=== PATIENT | female | born 1960 | race Caucasian/White ===

== ENCOUNTER 2016-06-03 10:10 | Inpatient (IN) | payer OTHER ==
[2016-06-03] MEDS ORDERED: FAMOTIDINE 20 MG/50 ML IVPB 50 ML IVPB ONE ×2 (12:32→12:38)
[2016-06-03] MEDS ORDERED: SODIUM CHLORIDE 1,000 ML IV STA (12:32)
[2016-06-03] MEDS ORDERED: ONDANSETRON 4 MG/2 ML VIAL IVPUSH ONE (12:32)
--- NOTE | 2016-06-03 12:36 | PDOC ---
History of Present Illness - General Chief Complaint: Pain Stated Complaint: ABD PAIN Time Seen by Provider: 06/03/16 12:28 History Source: Patient Exam Limitations: No Limitations - History of Present Illness Travel History: No Initial Comments: 06/03/16 12:33 56 yr female with abd pain nausea and vomiting started at 3am today. no other family members are sick. Pt denies fever, chills no diarrhea. no abd surgery. no travel. Timing/Duration: reports: constant Quality: reports: aching Abdominal Pain Onset Location: reports: generalized abdomen Pain Radiation: reports: epigastric Activities at Onset: reports: eating Past History - Past Medical History Allergies/Adverse Reactions: Allergies Allergy/AdvReac Type Severity Reaction Status Date / Time No Known Allergies Allergy Verified 06/03/16 10:15 Home Medications: Ambulatory Orders NK [No Known Home Medication] 06/03/16 Other medical history: DENIES - Surgical History Other Surgical History: 06/03/16 12:34 denies - Psycho/Social/Smoking Cessation Hx Anxiety: No Suicidal Ideation: No Smoking History: Never smoked Hx Alcohol Use: No Drug/Substance Use Hx: No Substance Use Type: None Abd/GI Specific PMHX - Complaint Specific PMHX Colitis: No Diverticulitis: No Gall Bladder Disease: No GERD: No Hepatitis: No Irritable Bowel Synd (IBS): No Pancreatitis: No GI Ulcer Disease: No Review of Systems - Review of Systems Able to Perform ROS?: Yes Is the patient limited Danish proficient: No Constitutional: No: Symptoms Reported HEENTM: No: Symptoms Reported Respiratory: No: Symptoms reported Cardiac (ROS): No: Symptoms Reported ABD/GI: Yes: Symptoms Reported, See HPI *Physical Exam - Vital Signs Last Vital Signs Temp Pulse Resp BP Pulse Ox 98.0 F 80 20 148/78 99 06/03/16 10:12 06/03/16 10:12 06/03/16 10:12 06/03/16 10:12 06/03/16 10:12 - Physical Exam General Appearance: Yes: Nourished, Appropriately Dressed HEENT: positive: EOMI, AURY, Normal ENT Inspection, TMs Normal, Pharynx Normal Neck: positive: Supple. negative: Tender Respiratory/Chest: positive: Lungs Clear, Normal Breath Sounds. negative: Chest Tender Cardiovascular: positive: Regular Rhythm, Regular Rate Gastrointestinal/Abdominal: positive: Normal Bowel Sounds, Tender, Increased Bowel Sounds. negative: Guarding, Rebound Musculoskeletal: positive: Normal Inspection Extremity: positive: Normal Capillary Refill, Normal Inspection, Normal Range of Motion Integumentary: positive: Normal Color, Dry, Warm Neurologic: positive: Fully Oriented, Alert, Normal Mood/Affect, Normal Response , Motor Strength 07/03 ED Treatment Course - LABORATORY CBC & Chemistry Diagram: 06/03/16 12:30 06/03/16 12:30 Medical Decision Making - Medical Decision Making 06/03/16 12:35 cc: abd pain, diarrhea vomiting started at 3am pain generalised radiates to epigastric area no back pain or diarrhea. 06/03/16 15:11 pt feels better after medications prescribed. US pending . 06/03/16 17:35 ct done pt improved after the medications no vomiting 06/03/16 17:[address] results show distal SBO no answer spoke to [facility] Hospitalist [employer]TAIN to admit pt. accepted admission to [facility] 06/03/16 18:06 spoke to Radha CARDOZO will see pt at bedside 06/03/16 18:14 Radha Patel at bedside family and pt aware of the plan explained via khmer translation *DC/Admit/Observation/Transfer Diagnosis at time of Disposition: Small bowel obstruction - Discharge Dispostion Admit: Yes Decision to Admit order Date/Time: 06/03/16 18:05 - Referrals Referrals: Lashae Hamm MD [Primary Care Provider] -
[2016-06-03] MEDS ORDERED: ONDANSETRON 4 MG/2 ML VIAL ONE (12:38)
[2016-06-03 12:40] LABS: BASOPHIL 0.4 % (0-2.0); EOSINOPHIL 0.4 % (0-4.5); MCH 29.3 pg (25.7-33.7); MCHC 33.7 g/dl (32.0-36.0); MEAN CELL VOLUME 87.1 fl (80-96); MEAN PLT VOLUME 8.5 fl (7.5-11.1); NEUTROPHILS 83.1 % (42.8-82.8); PLATELET COUNT 235 K/MM3 (134-434); RDW 13.2 % (11.6-15.6); WHITE BLOOD COUNT 10.1 K/mm3 (4.0-10.0)
[2016-06-03 13:07] LABS: ALBUMIN 4.9 g/dl (3.4-5.0); BILIRUBIN,TOTAL 0.6 mg/dL (0.2-1.0); TOT PROT 9.5 g/dl (6.4-8.2)
[2016-06-03 13:46] LABS: URINE APPEARANCE CLEAR; URINE BILIRUBIN NEGATIVE (NEGATIVE); URINE BLOOD NEGATIVE (NEGATIVE); URINE COLOR YELLOW; URINE GLUCOSE (UA) NEGATIVE (NEGATIVE); URINE KETONE 1+ (NEGATIVE); URINE LEUK ESTERASE NEGATIVE (NEGATIVE); URINE NITRITE NEGATIVE (NEGATIVE); URINE UROBILINOGEN NEGATIVE E.U./dl (0.2-1.0)
[2016-06-03 13:48] LABS: URINE PROTEIN 2+ (NEGATIVE)
[2016-06-03 13:59] LABS: URINE HYALINE CAST 1 /lpf; URINE RBC 8 /hpf (0-3); URINE WBC 11 /hpf (3-5)
[2016-06-03] MEDS ORDERED: METOCLOPRAMIDE HCL INJECTION 10 MG/2 ML VIAL IVPB ONE (15:48)
[2016-06-03] MEDS ORDERED: METOCLOPRAMIDE HCL INJECTION 10 MG/2 ML VIAL ONE (16:14)
[2016-06-03] MEDS: SODIUM CHLORIDE 1,000 ML IV SCH ×2 (16:15→22:06)
--- NOTE | 2016-06-03 19:29 | PN ---
<Victorina Colbert - Last Filed: 06/03/16 22:47> Teaching Attending Note Name of Resident: Jsaon Hernandez Problem List - Problems (1) Small bowel obstruction Assessment/Plan: NGT NPO IVF NS @125cc/h Tylenol 500mg IVPB Q6h prn Protonix 40mg IVPB Zofran prn Surgery consult Code(s): K56.69 - OTHER INTESTINAL OBSTRUCTION (2) Nephrolithiasis Assessment/Plan: IVF Urology consult Code(s): N20.0 - CALCULUS OF KIDNEY (3) DVT prophylaxis Assessment/Plan: Heparin 5000U sq TID Code(s): CDC1507 - <TrinityTiffany - Last Filed: 06/04/16 00:26> Teaching Attending Note ATTENDING PHYSICIAN STATEMENT I saw and evaluated the patient. I reviewed the resident's note and discussed the case with the resident. I agree with the resident's findings and plan as documented. SUBJECTIVE: 56 yo F presents with abdominal pain, nausea and vomiting since 3am today. Patient states pain originated in her LLQ and radiates to her whole abdomen. Patient rates the pain as 12/10. She notes that she has had 3 BM since last night. Denies sick contacts. Patient denies alleviating or worsening factors. PMHx: Denies OBJECTIVE: Last Vital Signs Temp Pulse Resp BP Pulse Ox 97.7 F 100 H 20 131/85 98 06/03/16 22:28 06/03/16 22:28 06/03/16 22:28 06/03/16 22:28 06/03/16 22:39 GENERAL: Awake, alert, and fully oriented, in no acute distress HEENT: NG tube. PERRLA, EOMI. Moist mucosa. No JVD LUNGS: No distress, speaks full sentences, clear to auscultation bilaterally HEART: Regular rate and rhythm, normal S1 and S2, no murmurs, rubs or gallops, peripheral pulses normal and equal bilaterally. ABDOMEN: Soft, LLQ tender on palpation, hypoactive bowel sounds. No guarding, no rebound. No masses. Negative for CVA tenderness. EXTREMITIES: Normal inspection, Normal range of motion, no edema. No clubbing or cyanosis. NEUROLOGICAL: Cranial nerves II through XII grossly intact. Normal speech, normal gait, no focal sensorimotor deficits SKIN: Warm, Dry, normal turgor, no rashes or lesions noted. CBCD WBC 10.1 K/mm3 (4.0-10.0) H 06/03/16 12:30 RBC 5.28 M/mm3 (3.60-5.2) H 06/03/16 12:30 Hgb 15.5 GM/dL (10.7-15.3) H 06/03/16 12:30 Hct 46.0 % (32.4-45.2) H 06/03/16 12:30 MCV 87.1 fl (80-96) 06/03/16 12:30 MCHC 33.7 g/dl (32.0-36.0) 06/03/16 12:30 RDW 13.2 % (11.6-15.6) 06/03/16 12:30 Plt Count 235 K/MM3 (134-434) 06/03/16 12:30 MPV 8.5 fl (7.5-11.1) 06/03/16 12:30 CMP Sodium 138 mmol/L (136-145) 06/03/16 12:30 Potassium 4.2 mmol/L (3.5-5.1) 06/03/16 12:30 Chloride 102 mmol/L (98-107) 06/03/16 12:30 Carbon Dioxide 24 mmol/L (21-32) 06/03/16 12:30 Anion Gap 12 (8-16) 06/03/16 12:30 BUN 17 mg/dL (7-18) 06/03/16 12:30 Creatinine 1.0 mg/dL (0.55-1.02) 06/03/16 12:30 Creat Clearance w eGFR 57.78 (>60) 06/03/16 12:30 Calcium 10.0 mg/dL (8.5-10.1) 06/03/16 12:30 Total Bilirubin 0.6 mg/dL (0.2-1.0) 06/03/16 12:30 AST 35 U/L (15-37) 06/03/16 12:30 ALT 59 U/L (12-78) 06/03/16 12:30 Alkaline Phosphatase 90 U/L (45-117) 06/03/16 12:30 Total Protein 9.5 g/dl (6.4-8.2) H 06/03/16 12:30 Albumin 4.9 g/dl (3.4-5.0) 06/03/16 12:[address] Impression: A mid to distal small bowel obstruction is noted as discussed. Bilateral nephrolithiasis including a left-sided staghorn calculus with resultant mild calyceal dilatation. Prominent diffuse hepatic steatosis. Documentation prepared by Tiffany Petersen, acting as medical staff physician for Victorina Colbert M.D.
--- NOTE | 2016-06-03 20:10 | PN ---
Progress Note (short form) - Note Progress Note: Surgery NOTE: Asked to see the patient for an SBO seen on CT scan today without contrast. She has a history of c section and noted to have left midline tenderness since 3 am. While at her house she had nausea which was relieved by emesis. Today she has had two bowel movement, non-bloody. She has no further abd pain but while in the ER she vomited alot which was witnessed by the ER staff. No dysuria, hematuria. The Er was unable to insert an NGT, so I assisted them. Vital Signs Period Temp Pulse Resp BP Sys/Linda Pulse Ox Last 24 Hr 98.0 F-98.8 F 80-104 19-20 124-148/75-92 96-99 PE: GEN: alert, appears comfortable CV: RRR Lungs: CTA b/l Abd: soft, non-distended, mild LLQ and to the left mid abd at umbilical level. No masses or rebound CT scan: fluid filled gastric distention, fluild filled SB loops with tone of transition(mid abd) US: hematomegaly CBC, BMP 06/03/16 12:30 06/03/16 12:30 NGT-16 fr inserted into left Nare and secured at 60cm. Air ausculated over the stomach with flushing of ngt, 300 ml out clear/fluid to light green returned. bgt placed to LWS A/p: 56 yo female with SBO on ct scan, ngt inserted S/w Dr. Moreno, full surgical consult to follow D/w Medical team, CXR to confirm placement admit to the medical service/npo and coservative managment with ngt decompression/iv hydration Gi ppx Axr ordered for the am
--- NOTE | 2016-06-03 22:12 | HP ---
CHIEF COMPLAINT: abd pain, nausea, vomiting PCP: HISTORY OF PRESENT ILLNESS: 56 y/o F w/no PMH presents to ER w/ c/o abd pain and nausea since 3 am last night. Pt is Sinhala speaking and history was obtained via translation from [id number] at bedside. She states the pain started all of a sudden in her LLQ and moved to her whole abdomen. The pain was rated as a "12/10" and she felt nauseous as well. Due to the nausea she induced herself to vomit. Vomit was nonbloody and nonbilious. She has never felt symptoms like this in the past. She has had 3 regular BMs since the onset of pain with no blood in stool. Last BM was approximately 1 hour before I had spoken to her and in the ER. She also had 1 episode of emesis in ER that was also non-bloody, non-bilious. Pt has had relief with pain meds and NGT placement in ER. She denies any CP, SOB, [place], fevers, chills, dysuria. No change in diet recently. Nephews and nieces are sick with gastric illnesses. Pt has had 1 and hysterectomy in the past. She sees her PCP (Dr. Bob?) regularly. ER course was notable for: (1) benadryl, pepcid, reglan, zofran (2) (3) Recent Travel: denies PAST MEDICAL HISTORY: No PMH PAST SURGICAL HISTORY: 24 years ago, hysterectomy 20 years ago Social History: Smoking: denies Alcohol: denies Drugs: denies Family History: Brother: DM Allergies No Known Allergies Allergy (Verified 06/03/16 10:15) HOME MEDICATIONS: Home Medications Medication Instructions Recorded NK [No Known Home Medication] 06/03/16 REVIEW OF SYSTEMS CONSTITUTIONAL: Absent: fever, chills, diaphoresis, generalized weakness, malaise, loss of appetite, weight change HEENT: Absent: rhinorrhea, nasal congestion, throat pain, throat swelling, difficulty swallowing, mouth swelling, ear pain, eye pain, visual changes CARDIOVASCULAR: Absent: chest pain, syncope, palpitations, irregular heart rate, lightheadedness , peripheral edema RESPIRATORY: Absent: cough, shortness of breath, dyspnea with exertion, orthopnea, wheezing, stridor, hemoptysis GASTROINTESTINAL: abd pain, nausea, vomiting Absent:=abdominal distension, diarrhea, constipation, melena, hematochezia GENITOURINARY: Absent: dysuria, frequency, urgency, hesitancy, hematuria, flank pain, genital pain MUSCULOSKELETAL: Absent: myalgia, arthralgia, joint swelling, back pain, neck pain SKIN: Absent: rash, itching, pallor HEMATOLOGIC/IMMUNOLOGIC: Absent: easy bleeding, easy bruising, lymphadenopathy, frequent infections ENDOCRINE: Absent: unexplained weight gain, unexplained weight loss, heat intolerance, cold intolerance NEUROLOGIC: Absent: headache, focal weakness or paresthesias, dizziness, unsteady gait, seizure, mental status changes, bladder or bowel incontinence PSYCHIATRIC: Absent: anxiety, depression, suicidal or homicidal ideation, hallucinations. PHYSICAL EXAMINATION Vital Signs - 24 hr 06/03/16 06/03/16 18:10 19:42 Temperature 98.8 F 98.1 F Pulse Rate [ 102 H 104 H Apical] Respiratory 19 19 Rate Blood Pressure 129/75 133/87 [Left Arm] O2 Sat by Pulse 96 97 Oximetry (%) GENERAL: Awake, alert, and fully oriented, in no acute distress. HEAD: Normal with no signs of trauma. EYES: extraocular movements intact, sclera anicteric, conjunctiva clear. No lid lag. EARS, NOSE, THROAT: Ears normal, nares patent, oropharynx clear without exudates. Moist mucous membranes. NECK: Normal range of motion, supple without lymphadenopathy, JVD, or masses. LUNGS: Breath sounds equal, clear to auscultation bilaterally. No wheezes, and no crackles. No accessory muscle use. HEART: Regular rate and rhythm, normal S1 and S2 without murmur, rub or gallop. ABDOMEN: Soft, LLQ tenderness, not distended, hypoactive bowel sounds, no guarding, no rebound, no masses. No hepatomegaly or splenomegaly. NGT in place. MUSCULOSKELETAL: Normal range of motion at all joints. No bony deformities or tenderness. No CVA tenderness. LOWER EXTREMITIES: 2+ pulses, warm, well-perfused. No calf tenderness. No peripheral edema. NEUROLOGICAL: Cranial nerves II-XII intact. Normal speech. Normal gait. PSYCHIATRIC: Cooperative. Good eye contact. Appropriate mood and affect. SKIN: Warm, dry, normal turgor, no rashes or lesions noted, normal capillary refill. CBCD WBC 10.1 K/mm3 (4.0-10.0) H 06/03/16 12:30 RBC 5.28 M/mm3 (3.60-5.2) H 06/03/16 12:30 Hgb 15.5 GM/dL (10.7-15.3) H 06/03/16 12:30 Hct 46.0 % (32.4-45.2) H 06/03/16 12:30 MCV 87.1 fl (80-96) 06/03/16 12:30 MCHC 33.7 g/dl (32.0-36.0) 06/03/16 12:30 RDW 13.2 % (11.6-15.6) 06/03/16 12:30 Plt Count 235 K/MM3 (134-434) 06/03/16 12:30 MPV 8.5 fl (7.5-11.1) 06/03/16 12:30 CMP Sodium 138 mmol/L (136-145) 06/03/16 12:30 Potassium 4.2 mmol/L (3.5-5.1) 06/03/16 12:30 Chloride 102 mmol/L (98-107) 06/03/16 12:30 Carbon Dioxide 24 mmol/L (21-32) 06/03/16 12:30 Anion Gap 12 (8-16) 06/03/16 12:30 BUN 17 mg/dL (7-18) 06/03/16 12:30 Creatinine 1.0 mg/dL (0.55-1.02) 06/03/16 12:30 Creat Clearance w eGFR 57.78 (>60) 06/03/16 12:30 Random Glucose 124 mg/dL (74-106) H 06/03/16 12:30 Calcium 10.0 mg/dL (8.5-10.1) 06/03/16 12:30 Total Bilirubin 0.6 mg/dL (0.2-1.0) 06/03/16 12:30 AST 35 U/L (15-37) 06/03/16 12:30 ALT 59 U/L (12-78) 06/03/16 12:30 Alkaline Phosphatase 90 U/L (45-117) 06/03/16 12:30 Total Protein 9.5 g/dl (6.4-8.2) H 06/03/16 12:30 Albumin 4.9 g/dl (3.4-5.0) 06/03/16 12:30 Laboratory Tests 06/03/16 12:30 Total Amylase 63 Lipase 197 Urine Test Results Urine Color Yellow 06/03/16 13:20 Urine Appearance Clear 06/03/16 13:20 Urine pH 9.0 (5.0-8.0) H 06/03/16 13:20 Ur Specific [place] 1.018 (1.001-1.035) 06/03/16 13:20 Urine Protein 2+ (NEGATIVE) H 06/03/16 13:20 Urine Glucose (UA) Negative (NEGATIVE) 06/03/16 13:20 Urine Ketones 1+ (NEGATIVE) H 06/03/16 13:20 Urine Blood Negative (NEGATIVE) 06/03/16 13:20 Urine Nitrite Negative (NEGATIVE) 06/03/16 13:20 Urine Bilirubin Negative (NEGATIVE) 06/03/16 13:20 Ur Leukocyte Esterase Negative (NEGATIVE) 06/03/16 13:20 Urine RBC 8 /hpf (0-3) 06/03/16 13:20 Urine WBC 11 /hpf (3-5) 06/03/16 13:20 Imaging: Abd U/S: 06/03/16 - hepatomegaly with lipomatous infiltration otherwise normal RUQ ultrasound CT abd/pelvis: 06/03/16 - mid ot distal small bowel obstruction - multiple fluid filled small bowel loops are seen w/in the abdomen bilaterally with a transition zone in the region of the upper pelvis centrally. Distal ileal bowel loops as well as the colon demonstrated a collapsed appearance. There is mild to moderate fluid-filled gastric distention. B/L nephrolithiasis including a left sided staghorn calculus with resutant mild calyceal dilatation. Prominent diffuse hepatic steatosis. Active Medications Acetaminophen (Ofirmev Injection -) 500 mg IVPB Q6H PRN PRN Reason: FEVER OR PAIN Stop: 06/04/16 16:45 Sodium Chloride (Normal Saline -) 1,000 mls @ 125 mls/hr IV ASDIR KELLIE Last Admin: 06/03/16 22:06 Dose: 125 mls/hr Pantoprazole Sodium (Protonix 40mg Ivpb (Pre-Docked)) 100 mls @ 200 mls/hr IVPB DAILY KELLIE Ondansetron HCl (Zofran Injection) 4 mg IVPB Q6H PRN PRN Reason: NAUSEA ASSESSMENT/PLAN: 56 y/o F w/no PMH presents to ER w/ c/o abd pain and nausea since 3 am last night. Found to have SBO and staghorn calculi. -Abdominal pain secondary to SBO -NPO -NS @ 125 ml/hr -NGT in place w/low wall suction -Nausea: zofran 4mg iv q6h prn -Pain control: IV ofirmev 500 mg q6h PRN -Protonix 40 mg IV qd -Surgery consulted (Dr. Moreno) -conservative management at this time -f/u Abd XR in AM -Staghorn calculi -As seen on CT abd/pelvis -Urine pH 9.0 -Serum calcium high normal at 10 -Urology consulted (Dr. Sparks) -DVT ppx -SCDs -FEN -NS @ 125 ml/hr -Electrolytes wnl -NPO -Dispo: -Admit to M/S Problem List - Problem (1) DVT prophylaxis Code(s): WLP0005 - (2) Nephrolithiasis Code(s): N20.0 - CALCULUS OF KIDNEY (3) Small bowel obstruction Code(s): K56.69 - OTHER INTESTINAL OBSTRUCTION (4) Staghorn calculus Code(s): N20.0 - CALCULUS OF KIDNEY Visit type - Emergency Visit Emergency Visit: Yes ED Registration Date: 06/03/16 Care time: The patient presented to the Emergency Department on the above date and was hospitalized for further evaluation of their emergent condition. - New Patient This patient is new to me today: Yes Date on this admission: 06/04/16 - Critical Care Critical Care patient: No
[2016-06-03 22:34] VITALS: BMI 35.6
[2016-06-03] MEDS ORDERED: ONDANSETRON 4 MG/2 ML VIAL IVPB PRN (22:41)
[2016-06-03] MEDS ORDERED: ACETAMINOPHEN 1000 MG/100 ML VIAL (NON FORMULARY) IVPB PRN (22:44)
[2016-06-04] MEDS ORDERED: ACETAMINOPHEN 650 MG SUPP.RECT PR ONE (01:47)
[2016-06-04] MEDS: SODIUM CHLORIDE 1,000 ML IV SCH ×2 (06:16→15:29)
[2016-06-04 07:28] LABS: BASOPHIL 0.4 % (0-2.0); EOSINOPHIL 1.7 % (0-4.5); MCH 29.6 pg (25.7-33.7); MCHC 33.7 g/dl (32.0-36.0); MEAN CELL VOLUME 87.8 fl (80-96); MEAN PLT VOLUME 8.7 fl (7.5-11.1); NEUTROPHILS 64.6 % (42.8-82.8); PLATELET COUNT 196 K/MM3 (134-434); RDW 13.7 % (11.6-15.6); WHITE BLOOD COUNT 8.8 K/mm3 (4.0-10.0)
[2016-06-04 07:55] LABS: ALBUMIN 3.5 g/dl (3.4-5.0); ANION GAP 7 (8-16); CALCIUM 8.1 mg/dL (8.5-10.1); CO2 26 mmol/L (21-32); GLUCOSE,RANDOM 101 mg/dL (74-106); MAGNESIUM 2.5 mg/dL (1.8-2.4)
[2016-06-04 08:00] LABS: ALK PHOS 65 U/L (45-117); BILIRUBIN,TOTAL 0.6 mg/dL (0.2-1.0); CREATININE 0.8 mg/dL (0.55-1.02); SGOT/AST 23 U/L (15-37); SGPT/ALT 40 U/L (12-78); TOT PROT 7.1 g/dl (6.4-8.2)
--- NOTE | 2016-06-04 08:43 | CONSULT ---
- Consultation REQUESTING PROVIDER: Laurel MOELLER CONSULT REQUEST: We have been asked to surgically evaluate this patient for evaluation and management of abdominal pain. PCP:Kaye Barragan HISTORY OF PRESENT ILLNESS:56 y/o female presented w/ ~ # hours of n/v and abdominal pain; she had nausea and ? forced ? emesis; she was passing flatus and having bowel movements; w/u was done in the ER and was c/w SBO. She states she is passing flatus. PMHx: none PSHx: C-S; MERT Home Medications Medication Instructions Recorded NK [No Known Home Medication] 06/03/16 Allergies Allergy/AdvReac Type Severity Reaction Status Date / Time No Known Allergies Allergy Verified 06/03/16 10:15 PHYSICAL EXAM: GENERAL: Awake, alert, and fully oriented, in no acute distress. HEAD: Normal with no signs of trauma. EYES: , sclera anicteric, NECK: Normal ROM, supple without lymphadenopathy, JVD, or masses. ABDOMEN: Soft, nontender, not distended, no guarding, no rebound, no masses. No organomegaly. No hernias; healed lower midline surgical scar. MUSCULOSKELETAL: Normal ROM at all joints. No bony deformities or tenderness. No CVA tenderness. UPPER EXTREMITIES: 2+ pulses, warm, well-perfused. No cyanosis. Cap refill <2 seconds. No peripheral edema. LOWER EXTREMITIES: 2+ pulses, warm, well-perfused. No calf tenderness. No peripheral edema. NEUROLOGICAL: Normal speech, gait not observed. PSYCH: Cooperative. Good eye contact. Appropriate mood and affect. SKIN: Warm, dry, normal turgor, no rashes or lesions noted. Vital Signs Temperature 97.9 F 06/04/16 05:52 Pulse Rate 93 H 06/04/16 05:52 Respiratory Rate 20 06/04/16 05:52 Blood Pressure 119/66 06/04/16 05:52 O2 Sat by Pulse Oximetry (%) 98 06/03/16 22:39 Lab Results WBC 8.8 K/mm3 (4.0-10.0) 06/04/16 06:30 RBC 4.41 M/mm3 (3.60-5.2) 06/04/16 06:30 Hgb 13.1 GM/dL (10.7-15.3) D 06/04/16 06:30 Hct 38.8 % (32.4-45.2) D 06/04/16 06:30 MCV 87.8 fl (80-96) 06/04/16 06:30 MCHC 33.7 g/dl (32.0-36.0) 06/04/16 06:30 RDW 13.7 % (11.6-15.6) 06/04/16 06:30 Plt Count 196 K/MM3 (134-434) 06/04/16 06:30 Sodium 144 mmol/L (136-145) 06/04/16 06:30 Potassium 4.6 mmol/L (3.5-5.1) 06/04/16 06:30 Chloride 111 mmol/L (98-107) H 06/04/16 06:30 Carbon Dioxide 26 mmol/L (21-32) 06/04/16 06:30 Anion Gap 7 (8-16) L 06/04/16 06:30 BUN 11 mg/dL (7-18) D 06/04/16 06:30 Creatinine 0.8 mg/dL (0.55-1.02) 06/04/16 06:30 Random Glucose 101 mg/dL (74-106) 06/04/16 06:30 Calcium 8.1 mg/dL (8.5-10.1) L 06/04/16 06:30 Imaging to date reviewed NGT drained 250 IMP:SBO PLAN:Follow up flat/upright axr's are ordered; continue NPO/IVF/NGT. Ryan Moreno MD FACS Visit type - Case Type Case Type: ED Admission - Emergency Emergency Visit: Yes ED Registration Date: 06/03/16 Care time: The patient presented to the Emergency Department on the above date and was hospitalized for further evaluation of their emergent condition. - New patient This patient is new to me today: Yes Date on this admission: 06/04/16 - Critical Care Critical Care patient: No
[2016-06-04] MEDS: PANTOPRAZOLE SODIUM 100 ML IVPB SCH (09:16)
--- NOTE | 2016-06-04 10:22 | CON.GU ---
Consult - History of Present Illness History of Present Illness: 56 yo female admitted with abdominal pain and small bowel obstruction. Noted to have bilateral nonobstructing nephrolithiasis with partial left staghorn calculus on CT. Pt is aware of her stones. Denies any flank pain - Past Medical History ...: No - Alcohol/Substance Use Hx Alcohol Use: No - Smoking History Smoking history: Never smoked Have you smoked in the past 12 months: No Home Medications - Allergies Allergies/Adverse Reactions: Allergies Allergy/AdvReac Type Severity Reaction Status Date / Time No Known Allergies Allergy Verified 06/03/16 10:15 - Home Medications Home Medications: Ambulatory Orders NK [No Known Home Medication] 06/03/16 Physical Exam- Vital Signs: Vital Signs Temperature 97.9 F 06/04/16 05:52 Pulse Rate 93 H 06/04/16 05:52 Respiratory Rate 20 06/04/16 05:52 Blood Pressure 119/66 06/04/16 05:52 O2 Sat by Pulse Oximetry (%) 98 06/03/16 22:39 Labs: CBC, BMP 06/04/16 06:30 06/04/16 06:30 Imaging - Results Cat Scan: Report Reviewed Problem List - Problems (1) Nephrolithiasis Assessment/Plan: No indication for acute intervention for the nephrolithiasis. Recommend outpt followup for treatment of her stones Code(s): N20.0 - CALCULUS OF KIDNEY
[2016-06-04] MEDS ORDERED: morphine CARPU-JECT 2 MG/1 ML DISP.SYRIN IVPUSH PRN (12:08)
--- NOTE | 2016-06-04 15:04 | PN ---
Physical Exam: SUBJECTIVE: Patient seen and examined Pt is awake, alert and fully oriented Pt has no s.s of acute distress No abdominal pain, no n/v last bowel movement was yesterday formed, bown pt is passing gas Pt is ambulating OBJECTIVE: Vital Signs Period Temp Pulse Resp BP Sys/Linda Pulse Ox Last 24 Hr 97.7 F-98.9 F 66-104 18-20 119-135/66-87 96-98 GENERAL: The patient is awake, alert, and fully oriented, in no acute distress. HEAD: Normal with no signs of trauma. NECK: Trachea midline, full range of motion, supple. LUNGS: Breath sounds equal, clear to auscultation bilaterally, no wheezes, no crackles, no accessory muscle use. HEART: Regular rate and rhythm, S1, S2 without murmur, rub or gallop. ABDOMEN: Soft, mild tenderness lower abdomen, nondistended, normoactive bowel sounds, no guarding, no rebound, no hepatosplenomegaly, no masses. EXTREMITIES: 2+ pulses, warm, well-perfused, no edema. NEUROLOGICAL:. Normal speech, gait not observed. PSYCH: Normal mood, normal affect. SKIN: Warm, dry, normal turgor, no rashes or lesions noted Laboratory Results - last 24 hr 06/04/16 06/04/16 06:30 06:30 WBC 8.8 RBC 4.41 Hgb 13.1 D Hct 38.8 D MCV 87.8 MCHC 33.7 RDW 13.7 Plt Count 196 MPV 8.7 Neutrophils % 64.6 D Lymphocytes % 26.4 D Monocytes % 6.9 D Eosinophils % 1.7 D Basophils % 0.4 Sodium 144 Potassium 4.6 Chloride 111 H Carbon Dioxide 26 Anion Gap 7 L BUN 11 D Creatinine 0.8 Creat Clearance w eGFR > 60 Random Glucose 101 Calcium 8.1 L Phosphorus 3.0 Magnesium 2.5 H Total Bilirubin 0.6 AST 23 D ALT 40 D Alkaline Phosphatase 65 D Total Protein 7.1 D Albumin 3.5 D Active Medications Generic Name Dose Route Start Last Admin Trade Name Freq PRN Reason Stop Dose Admin Acetaminophen 500 mg 06/03/16 22:44 Ofirmev Injection - IVPB 06/04/16 16:45 Q6H PRN FEVER OR PAIN Sodium Chloride 1,000 mls @ 125 mls/hr 06/03/16 16:00 06/04/16 06:16 Normal Saline - IV 125 mls/hr ASDIR KELLIE Administration Pantoprazole Sodium 100 mls @ 200 mls/hr 06/04/16 10:00 06/04/16 09:16 Protonix 40mg Ivpb (Pre-Docked) IVPB 200 mls/hr DAILY KELLIE Administration Morphine Sulfate 2 mg 06/04/16 12:08 06/04/16 14:04 Morphine Injection - IVPUSH 2 mg Q4H PRN Administration PAIN Ondansetron HCl 4 mg 06/03/16 22:41 Zofran Injection IVPB Q6H PRN NAUSEA CBC, BMP 06/04/16 06:30 06/04/16 06:30 Laboratory Tests 06/03/16 13:20 Urine pH 9.0 H Urine Protein 2+ H Urine Ketones 1+ H Urine Nitrite Negative Ur Leukocyte Esterase Negative Urine WBC 11 Urine HCG, Qual Negative ASSESSMENT/PLAN: 6 year old female with n significant pmh presents to the ED with complaint of nausea, abdominal pain. Pt was found to have small bowel obstruction and staghorn calculi SBO US RUQ showed hepatomegaly with fatty infiltration CT abdomen showed SOb with transition zone in central upper pelvis, b/l nephrolithiasis and left staghorn calucli and hepatosteatosis conservative mgt NPO NGT at LIS NS at 125ml/h Tylenol IV 1gm q6h PRN Morphine IV 2mg prn protonix 40mg IV qd Zofran 4mg IV q6h prn intake and output Daily Abdominal XRay and serial exam. Surgery consulted Dr Moreno Nepholithiasis with Staghorn calculi UA wbc 11, leuk est negative, Nitrite negative, PH 9, Ca bruce 8.[address] Duncan, no acute intervention, follow up as outpatient FEN Fluid: NS at 125ml/h Electrolytes: no abnormalities Nutrition: NPO Disposition: keep in medsurg pending resolution of SBO Visit type - Emergency Visit Emergency Visit: Yes ED Registration Date: 06/03/16 Care time: The patient presented to the Emergency Department on the above date and was hospitalized for further evaluation of their emergent condition. - New Patient This patient is new to me today: Yes Date on this admission: 06/04/16 - Critical Care Critical Care patient: No - Discharge Referral Referred to [facility] Med P.C.: No
[2016-06-04] MEDS ORDERED: ACETAMINOPHEN 1000 MG/100 ML VIAL (NON FORMULARY) IVPB PRN (15:18)
--- NOTE | 2016-06-04 15:30 | PN ---
Teaching Attending Note Name of Resident: Bill Araiza ATTENDING PHYSICIAN STATEMENT I saw and evaluated the patient. I reviewed the resident's note and discussed the case with the resident. I agree with the resident's findings and plan as documented. SUBJECTIVE:states she is hungry and has a BURKETT. abdominal pain has resolved. denies N/V/C/D, CP, SOB,fever or chills. no flatus/belching or BM OBJECTIVE: Last Vital Signs Temp Pulse Resp BP Pulse Ox 98.9 F 66 20 133/82 98 06/04/16 13:43 06/04/16 13:43 06/04/16 13:43 06/04/16 13:43 06/04/16 09:00 General NAD CV S1 S2 RRR no murmur/rub/gallop Lungs CTA B/L no wheezing/rales/rhonchi abdomen soft LLQ tenderness or deep palpation, non distended. no BS ASSESSMENT AND PLAN: 56yo F with no PMH presented to the Er and was admitted for further evaluation of their emergent condition 1. SBO- clinically stable. requesting to eat. persistent SBO on AXR. serial abdominal exams. AXR tomorrow. monitor for return of bowel function. maintain NGT to suction. IVF, pain and nausea control. surgery on board 2. staghorn calculi- pt was told she had a kidney stone detected by US in January 2016 in but did not follow up. urology evaluated will need to f/u as outpatient 3. DVT ppx- start hep sq
--- NOTE | 2016-06-04 16:19 | EKG ---
Test Reason : Blood Pressure : / mmHG Vent. Rate : 064 BPM Atrial Rate : 064 BPM P-R Int : 166 ms QRS Dur : 080 ms QT Int : 454 ms P-R-T Axes : 048 028 041 degrees QTc Int : 468 ms NORMAL SINUS RHYTHM POSSIBLE LEFT ATRIAL ENLARGEMENT CANNOT RULE OUT ANTERIOR INFARCT , AGE UNDETERMINED ABNORMAL ECG NO PREVIOUS ECGS AVAILABLE Confirmed by DENITA FRANCES MD ([id number]) on 06/04/2016 4:19:23 PM Referred By: Confirmed By:DENITA FRANCES MD
[2016-06-04] MEDS: HEPARIN NA (PORCINE) 5,000 UNITS/ML 1ML VIAL SQ SCH (21:08)
[2016-06-05] MEDS: SODIUM CHLORIDE 1,000 ML IV SCH ×3 (01:43→18:31)
[2016-06-05] MEDS: PANTOPRAZOLE SODIUM 100 ML IVPB SCH (09:42)
[2016-06-05] MEDS: HEPARIN NA (PORCINE) 5,000 UNITS/ML 1ML VIAL SQ SCH ×2 (09:42→21:58)
--- NOTE | 2016-06-05 10:14 | PN ---
Progress Note (short form) - Note Progress Note: Attending Surgeon No c/o; passing flatus; no pain VSS AF abdo-soft/flat;minimal tympany; no tenderness; o/w negative NGT-400 AXR's; no a/f levels; air in rectum IMP: Resolving SBO PLAN: D/c ngt; keep NPO; f/u films in AM. Ryan Moreno MD FACS
--- NOTE | 2016-06-05 15:09 | PN ---
Physical Exam: SUBJECTIVE: Patient seen and examined Pt is clinically better Pt had some abdominal pain yesterday but none Pt passing gas NO n/v no fever or chills 400ml out of NG tube yesterday OBJECTIVE: Vital Signs Period Temp Pulse Resp BP Sys/Linda Pulse Ox Last 24 Hr 98.1 F-98.4 F 63-70 19-20 109-132/68-74 98 GENERAL: The patient is awake, alert, and fully oriented, in no acute distress. HEAD: Normal with no signs of trauma. NECK: Trachea midline, full range of motion, supple. LUNGS: Breath sounds equal, clear to auscultation bilaterally, no wheezes, no crackles, no accessory muscle use. HEART: Regular rate and rhythm, S1, S2 without murmur, rub or gallop. ABDOMEN: Soft, minimal tenderness, nondistended, normoactive bowel sounds, no guarding, no rebound, no hepatosplenomegaly, no masses. EXTREMITIES: 2+ pulses, warm, well-perfused, no edema. NEUROLOGICAL:. Normal speech, gait not observed. PSYCH: Normal mood, normal affect. SKIN: Warm, dry, normal turgor, no rashes or lesions noted Active Medications Generic Name Dose Route Start Last Admin Trade Name Freq PRN Reason Stop Dose Admin Heparin Sodium (Porcine) 5,000 unit 06/04/16 22:00 06/05/16 09:42 Heparin - SQ 5,000 unit BID KELLIE Administration Sodium Chloride 1,000 mls @ 125 mls/hr 06/03/16 16:00 06/05/16 09:44 Normal Saline - IV 125 mls/hr ASDIR KELLIE Administration Pantoprazole Sodium 100 mls @ 200 mls/hr 06/04/16 10:00 06/05/16 09:42 Protonix 40mg Ivpb (Pre-Docked) IVPB 200 mls/hr DAILY KELLIE Administration Morphine Sulfate 2 mg 06/04/16 12:08 06/04/16 14:04 Morphine Injection - IVPUSH 2 mg Q4H PRN Administration PAIN Ondansetron HCl 4 mg 06/03/16 22:41 Zofran Injection IVPB Q6H PRN NAUSEA 06/04/16 06:30 06/04/16 06:30 ASSESSMENT/PLAN: 56 year old female with n significant pmh presents to the ED with complaint of nausea, abdominal pain. Pt was found to have small bowel obstruction and staghorn calculi SBO US RUQ showed hepatomegaly with fatty infiltration CT abdomen showed SOb with transition zone in central upper pelvis, b/l nephrolithiasis and left staghorn calucli and hepatosteatosis conservative mgt Xray abdomen still shows SBO but pt is clinically improving Surgery Dr Moreno on case Per Surgery Pt will remain NPO, NGT DC, reapeat abdominal Xray in am NS at 125ml/h Tylenol IV 1gm q6h PRN Morphine IV 2mg prn protonix 40mg IV qd Zofran 4mg IV q6h prn intake and output Nepholithiasis with Staghorn calculi UA wbc 11, leuk est negative, Nitrite negative, PH 9, Ca bruce 8.[address] Duncan, no acute intervention, follow up as outpatient FEN Fluid: NS at 125ml/h Electrolytes: no abnormalities Nutrition: NPO Disposition: keep in medsurg pending resolution of SBO Visit type - Emergency Visit Emergency Visit: Yes ED Registration Date: 06/03/16 Care time: The patient presented to the Emergency Department on the above date and was hospitalized for further evaluation of their emergent condition. - New Patient This patient is new to me today: Yes - Critical Care Critical Care patient: No - Discharge Referral Referred to [facility] Med P.C.: No
--- NOTE | 2016-06-05 15:29 | PN ---
Teaching Attending Note Name of Resident: Bill Araiza ATTENDING PHYSICIAN STATEMENT I saw and evaluated the patient. I reviewed the resident's note and discussed the case with the resident. I agree with the resident's findings and plan as documented. SUBJECTIVE:clinically improved. pain has resolved. passing flatus. no BM no belching. denies CP, SOB,fever, chills, N/V/C/D OBJECTIVE: Last Vital Signs Temp Pulse Resp BP Pulse Ox 98.1 F 67 20 132/74 98 06/05/16 10:06/05/16 10:06/05/16 10:06/05/16 10:06/04/16 21:00 General NAD abdomen soft NT/ND. normal BS ASSESSMENT AND PLAN: 56yo F with no PMH presented to the Er and was admitted for further evaluation of their emergent condition 1. SBO- clinically stable. NGT removed. bowel sounds heard. AXR not good study. will repeat in AM. will advance diet in AM if continues to clinically improve. serial abdominal exams. IVF, pain and nausea control. surgery on board 2. staghorn calculi- urology evaluated will need to f/u as outpatient 3. DVT ppx- hep sq
[2016-06-06] MEDS: SODIUM CHLORIDE 1,000 ML IV SCH (03:46)
[2016-06-06] MEDS: PANTOPRAZOLE SODIUM 100 ML IVPB SCH (10:45)
[2016-06-06] MEDS: HEPARIN NA (PORCINE) 5,000 UNITS/ML 1ML VIAL SQ SCH ×2 (10:45→21:24)
--- NOTE | 2016-06-06 13:13 | PN ---
Progress Note (short form) - Note Progress Note: Attending Surgeon No c/o; passing flatus; wants to drink/eat VSS AF abdomen-soft/flat/nontender; slight tympany AXR-partial sbo;air in colon IMP:resolving partial sbo PLAN: Trial of clear liquids and advance as tolerated.
--- NOTE | 2016-06-06 16:25 | PN ---
Progress Note (short form) - Note Progress Note: pain resolved. passing copious amounts of flatus. has not eaten/drank today. denies CP, SOB,fever, chills, no BM Current Medications Generic Name Dose Route Start Last Admin Trade Name Freq PRN Reason Stop Dose Admin Heparin Sodium (Porcine) 5,000 unit 06/04/16 22:00 06/06/16 10:45 Heparin - SQ 5,000 unit BID KELLIE Administration Sodium Chloride 1,000 mls @ 125 mls/hr 06/03/16 16:00 06/06/16 03:46 Normal Saline - IV 125 mls/hr ASDIR KELLIE Administration Pantoprazole Sodium 100 mls @ 200 mls/hr 06/04/16 10:00 06/06/16 10:45 Protonix 40mg Ivpb (Pre-Docked) IVPB 200 mls/hr DAILY KELLIE Administration Morphine Sulfate 2 mg 06/04/16 12:08 06/04/16 14:04 Morphine Injection - IVPUSH 2 mg Q4H PRN Administration PAIN Ondansetron HCl 4 mg 06/03/16 22:41 Zofran Injection IVPB Q6H PRN NAUSEA Last Vital Signs Temp Pulse Resp BP Pulse Ox 98.1 F 66 17 132/69 99 06/06/16 13:49 06/06/16 13:49 06/06/16 13:49 06/06/16 04:00 06/05/16 21:00 General NAD abdomen soft NT/ND. normal BS ASSESSMENT AND PLAN: 56yo F with no PMH presented to the Er and was admitted for further evaluation of their emergent condition 1. SBO- clinically stable. AXR shows persistent SBO but clinically improved with flatus. trial of liquids by mouth. will slowly advance. serial abdominal exams. d/c IVF if tolerating diet. pain and nausea control. surgery on board 2. staghorn calculi- urology evaluated will need to f/u as outpatient 3. DVT ppx- hep sq Visit type - Emergency Visit Emergency Visit: Yes ED Registration Date: 06/03/16 Care time: The patient presented to the Emergency Department on the above date and was hospitalized for further evaluation of their emergent condition. - New Patient This patient is new to me today: No - Critical Care Critical Care patient: No - Discharge Referral Referred to [facility] Med P.C.: No
[2016-06-07] MEDS: SODIUM CHLORIDE 1,000 ML IV SCH ×2 (02:00→09:32)
[2016-06-07] MEDS: HEPARIN NA (PORCINE) 5,000 UNITS/ML 1ML VIAL SQ SCH (09:33)
[2016-06-07] MEDS: PANTOPRAZOLE SODIUM 100 ML IVPB SCH (09:33)
[2016-06-07 11:55] VITALS: BP 135/84
[2016-06-07 14:16] VITALS: PULSE 74; TEMP 98.6
--- NOTE | 2016-06-07 14:33 | PN ---
Progress Note (short form) - Note Progress Note: pain resolved. BM last night and this morning. tolerated liquid last night and advanced to regular diet for lunch and tolerated well. denies CP, SOB,fever, chills, Current Medications Generic Name Dose Route Start Last Admin Trade Name Freq PRN Reason Stop Dose Admin Heparin Sodium (Porcine) 5,000 unit 06/04/16 22:00 06/07/16 09:33 Heparin - SQ 5,000 unit BID KELLIE Administration Sodium Chloride 1,000 mls @ 125 mls/hr 06/03/16 16:00 06/07/16 09:32 Normal Saline - IV 125 mls/hr ASDIR KELLIE Administration Pantoprazole Sodium 100 mls @ 200 mls/hr 06/04/16 10:00 06/07/16 09:33 Protonix 40mg Ivpb (Pre-Docked) IVPB 200 mls/hr DAILY KELLIE Administration Morphine Sulfate 2 mg 06/04/16 12:08 06/04/16 14:04 Morphine Injection - IVPUSH 2 mg Q4H PRN Administration PAIN Ondansetron HCl 4 mg 06/03/16 22:41 Zofran Injection IVPB Q6H PRN NAUSEA Last Vital Signs Temp Pulse Resp BP Pulse Ox 98.6 F 74 20 135/84 99 06/07/16 14:15 06/07/16 14:15 06/07/16 14:15 06/07/16 08:00 06/07/16 08:00 General NAD abdomen soft NT/ND. normal BS ASSESSMENT AND PLAN: 56yo F with no PMH presented to the Er and was admitted for further evaluation of their emergent condition 1. SBO- resolved. tolerating diet. 2 BM in the past 24H. diet advance to regular. surgery on board 2. staghorn calculi- urology evaluated will need to f/u as outpatient 3. DVT ppx- hep sq 4. d/c home Visit type - Emergency Visit Emergency Visit: Yes ED Registration Date: 06/03/16 Care time: The patient presented to the Emergency Department on the above date and was hospitalized for further evaluation of their emergent condition. - New Patient This patient is new to me today: No - Critical Care Critical Care patient: No - Discharge Referral Referred to [facility] Med P.C.: No
== END 2016-06-07 18:13 | disposition home or self-care (01) | DRG 247 ==
LOC: JER 10:10 → JERBED 18:05 → J6S 20:46
PROVIDERS: ADMIT Internal Medicine; ATTEND Internal Medicine
PROC: 0D9670Z Drainage of Stomach with Drainage Device, Via Natural or Artificial Opening (ICD-10-PCS; principal; 2016-06-03)
DX: K56.69 Other intestinal obstruction (principal); N20.0 Calculus of kidney; K76.0 Fatty (change of) liver, not elsewhere classified
CPT/HCPCS: 36415; 71010-TC; 74020-TC; 74176-TC; 76700-TC; 80053; 81003; 81015; 82150; 83690; 83735; 84100; 84703; 85025; 93005; 93010; 99284-25; J1644

== ENCOUNTER 2016-09-14 11:37 | Day surgery (SDC) | payer OTHER ==
[2016-09-10 14:41] VITALS: BMI 30.5
[2016-09-14] MEDS ORDERED: LEVOFLOXACIN 500 MG IVPB 100 ML IVPB ONE (12:37)
[2016-09-14] MEDS ORDERED: MIDAZOLAM HCL 2 MG/2 ML SINGLE DOSE VIAL ONE (15:05)
[2016-09-14] MEDS ORDERED: LEVOFLOXACIN 500 MG PREMIX BAG IVPB ONE (15:08)
[2016-09-14] MEDS ORDERED: oxyCODONE HCL 5 MG TABLET PO PRN (15:31)
[2016-09-14] MEDS ORDERED: ONDANSETRON 4 MG/2 ML VIAL IVPUSH PRN (15:31)
[2016-09-14] MEDS ORDERED: ACETAMINOPHEN 325 MG TABLET (FP) PO PRN (15:31)
[2016-09-14] MEDS ORDERED: LACTATED RINGERS SOLUTION 1,000 ML IV SCH (15:45)
--- NOTE | 2016-09-14 16:02 | OP ---
Operative Note - Note: Operative Date: 09/14/16 Pre-Operative Diagnosis: left renal stones Operation: left eswl Findings: 10 mm and 15 mm mid-pole stone with a 30mm x 10mm upper pole stone all on the left Post-Operative Diagnosis: Same as Pre-op Surgeon: Bladimir Pan
[2016-09-14 17:41] VITALS: BP 114/70; PULSE 82
[2016-09-14 19:03] VITALS: TEMP 98.1
--- NOTE | 2016-09-15 14:45 | OP ---
DATE OF OPERATION: 09/14/2016 PREOPERATIVE DIAGNOSIS: Left nephrolithiasis. POSTOPERATIVE DIAGNOSIS: Left nephrolithiasis. PROCEDURE: Left extracorporeal shock wave lithotripsy. ATTENDING: Nelda Frances MD ANESTHESIA: General. DESCRIPTION OF OPERATION: The patient was brought in the operating room, placed in supine position on the operating room table. Ultrasonography and fluoroscopy were performed. Two large stones were noted in the mid-pole of the left kidney. One stone measured 10 mm, and the other stone measured 15 mm. An additional upper pole stone measuring 30 mm x 10 mm was also identified. Extracorporeal shock wave lithotripsy was going to be limited to the 2 mid-pole stones. General anesthesia and antibiotics were administered, and 1500 impulses at 20 joules of power were administered to each of the 2 mid-pole stones. Excellent fragmentation was noted under real-time fluoroscopy and ultrasonography. No complications were noted. Disposition of the patient was to recovery room. NELDA FRANCES M.D. [id number]
== END 2016-09-14 17:15 | disposition home or self-care (01) ==
LOC: JASU-SURG 11:37
PROVIDERS: ATTEND Urology
PROC: 0TF4XZZ Fragmentation in Left Kidney Pelvis, External Approach (ICD-10-PCS; principal; 2016-09-14 13:30)
DX: N20.0 Calculus of kidney (principal)
CPT/HCPCS: 94760

== ENCOUNTER 2016-11-09 08:08 | Day surgery (SDC) | payer OTHER ==
[2016-11-06 14:51] VITALS: BMI 30.5
[2016-11-09] MEDS ORDERED: LEVOFLOXACIN 500 MG IVPB 100 ML IVPB ONE (09:34)
[2016-11-09] MEDS ORDERED: ONDANSETRON 4 MG/2 ML VIAL IVPUSH PRN (09:40)
[2016-11-09] MEDS ORDERED: oxyCODONE HCL 5 MG TABLET PO PRN (09:40)
[2016-11-09] MEDS ORDERED: MIDAZOLAM HCL 2 MG/2 ML SINGLE DOSE VIAL ONE (09:43)
[2016-11-09] MEDS ORDERED: LEVOFLOXACIN 500 MG PREMIX BAG IVPB ONE (09:44)
[2016-11-09] MEDS ORDERED: LACTATED RINGERS SOLUTION 1,000 ML IV SCH (09:45)
--- NOTE | 2016-11-09 11:10 | OP ---
DATE OF OPERATION: 11/09/2016 PREOPERATIVE DIAGNOSIS: Right renal stone. POSTOPERATIVE DIAGNOSIS: Right renal stone. PROCEDURE: Right extracorporeal shock-wave lithotripsy. ATTENDING: Bladimir Simmons MD ANESTHESIA: General. DESCRIPTION OF PROCEDURE: The patient was brought in the operating room and placed in supine position on the operating room table. Ultrasonography and fluoroscopy were performed. A 5-cm right lower pole stone was identified. Anesthesia was then administered. Fractional anesthesia was utilized. Levaquin was given preoperatively for surgical prophylaxis. Then 2500 impulses at 20 J of power were administered to the stone with excellent fragmentation under real time ultrasonography and fluoroscopy. No complications were noted. DISPOSITION: To the recovery room. Joseline [id number]
[2016-11-09] MEDS ORDERED: oxyCODONE HCL 5 MG TABLET ONE (11:28)
[2016-11-09 12:15] VITALS: TEMP 98
[2016-11-09 12:41] VITALS: PULSE 60
[2016-11-09 12:44] VITALS: BP 112/60
--- NOTE | 2016-11-09 17:07 | OP ---
Operative Note - Note: Operative Date: 11/09/16 Pre-Operative Diagnosis: right renal stone Operation: right eswl Post-Operative Diagnosis: Same as Pre-op Surgeon: Bladimir Pan Anesthesia: Fractional
--- NOTE | 2016-11-10 09:20 | OP ---
DATE OF OPERATION: 11/09/2016 PREOPERATIVE DIAGNOSIS: Right renal stone. POSTOPERATIVE DIAGNOSIS: Right renal stone. PROCEDURE: Right extracorporeal shock wave lithotripsy. ATTENDING: Nelda Frances MD ANESTHESIA: Fractional. DESCRIPTION OF OPERATION: The patient was brought in the operating room, placed in supine position on the operating room table. Ultrasonography and fluoroscopy were performed. A right lower pole, 5-mm stone was identified. At this point, anesthesia was started and Levaquin given. Extracorporeal shock wave lithotripsy was then performed; 2500 impulses at 20 joules of power were administered to the stone. Excellent fragmentation of the stone was noted under real-time ultrasonography and fluoroscopy. No complications were noted. NELDA FRANCES M.D. [id number]
== END 2016-11-09 12:44 | disposition home or self-care (01) ==
LOC: JASU-SURG 08:08
PROVIDERS: ATTEND Urology
PROC: 0TF3XZZ Fragmentation in Right Kidney Pelvis, External Approach (ICD-10-PCS; principal; 2016-11-09 09:30)
DX: N20.0 Calculus of kidney (principal)
CPT/HCPCS: 94760

== ENCOUNTER 2017-04-26 11:11 | Day surgery (SDC) | payer OTHER ==
[2017-04-23 12:32] VITALS: BMI 29.8
[2017-04-26] MEDS ORDERED: MIDAZOLAM HCL 2 MG/2 ML SINGLE DOSE VIAL ONE (14:05)
--- NOTE | 2017-04-26 14:26 | OP ---
Operative Note - Note: Operative Date: 04/26/17 Pre-Operative Diagnosis: Leftt kidney stone Operation: Left ESWL Findings: 15 mm mid pole left kidney stone Post-Operative Diagnosis: Same as Pre-op Surgeon: Blaidmir Pan Anesthesia: Fractional
[2017-04-26 15:14] VITALS: TEMP 98.1
[2017-04-26 15:45] VITALS: BP 139/87; PULSE 61
--- NOTE | 2017-04-27 09:02 | OP ---
DATE OF OPERATION: 04/26/2017 PREOPERATIVE DIAGNOSIS: Left renal stone. POSTOPERATIVE DIAGNOSIS: Left renal stone. PROCEDURE: Left extracorporeal shock wave lithotripsy. ATTENDING: Nelda Frances MD ANESTHESIA: Fractional. OPERATION: The patient was brought into the operating room, placed in supine position on the operating room table. Ultrasonography and fluoroscopy were performed. A 15 mm x 20 mm left mid-pole stone was identified. At this point, anesthesia was administered as was preoperative antibiotics. Then, 2500 impulses at 20 joules of power were administered to the stone. Excellent fragmentation was noted. No complications were noted. The disposition of the patient was to the recovery room. NELDA FRANCES M.D. [id number]
== END 2017-04-26 15:50 | disposition home or self-care (01) ==
LOC: JASU-SURG 11:11
PROVIDERS: ATTEND Urology
PROC: 0TF3XZZ Fragmentation in Right Kidney Pelvis, External Approach (ICD-10-PCS; principal; 2017-04-26 13:15)
DX: N20.0 Calculus of kidney (principal)

== ENCOUNTER 2017-11-22 08:40 | Day surgery (SDC) | payer OTHER ==
[2017-11-18 11:55] VITALS: BMI 29.8
[2017-11-22] MEDS ORDERED: MIDAZOLAM HCL 2 MG/2 ML SINGLE DOSE VIAL ONE (10:17)
[2017-11-22] MEDS ORDERED: DEXAMETHASONE SOD PHOSPHATE 4 MG/1 ML VIAL ONE (10:59)
--- NOTE | 2017-11-22 11:24 | OP ---
Operative Note - Note: Operative Date: 11/22/17 Pre-Operative Diagnosis: Left renal stone Operation: Left ESWL Findings: 15 mm Upper pole Left kidney stone Post-Operative Diagnosis: Same as Pre-op Surgeon: Bladimir Pan Anesthesia: Fractional Estimated Blood Loss (mls): 0 Operative Report Dictated: Yes
[2017-11-22 11:43] VITALS: TEMP 98.5
[2017-11-22 13:00] VITALS: BP 108/76; PULSE 71
[2017-11-22] MEDS ORDERED: oxyCODONE HCL 5 MG TABLET PO PRN (15:52)
[2017-11-22] MEDS ORDERED: ONDANSETRON 4 MG/2 ML VIAL IVPUSH PRN (15:52)
[2017-11-22] MEDS ORDERED: ACETAMINOPHEN 325 MG TABLET (FP) PO PRN (15:52)
[2017-11-22] MEDS ORDERED: LACTATED RINGERS SOLUTION 1,000 ML IV SCH (16:00)
--- NOTE | 2017-11-22 22:03 | OP ---
DATE OF OPERATION: 11/22/2017 PREOPERATIVE DIAGNOSIS: Left renal stone. POSTOPERATIVE DIAGNOSIS: Left renal stone. PROCEDURE: Left extracorporeal shock wave lithotripsy. ATTENDING: Nelda Frances MD ANESTHESIA: General. DESCRIPTION OF OPERATION: The patient was brought in the operating room and placed in a supine position on the operating room table. Ultrasonography and fluoroscopy were performed. A 15-mm left upper pole kidney stone was identified. Anesthesia was then administered. Next, 3000 impulses at 20 joules of power were administered to the stone. Excellent fragmentation as noted. The patient tolerated the procedure very well. No complications were noted. The disposition of the patient was to the recovery room. NELDA FRANCES M.D. [id number]
== END 2017-11-22 13:04 | disposition home or self-care (01) ==
LOC: JASU-SURG 08:40
PROVIDERS: ATTEND Urology
PROC: 0TF4XZZ Fragmentation in Left Kidney Pelvis, External Approach (ICD-10-PCS; principal; 2017-11-22 10:15)
DX: N20.0 Calculus of kidney (principal)
CPT/HCPCS: 84703

== ENCOUNTER 2018-05-23 10:33 | Day surgery (SDC) | payer OTHER ==
[2018-05-20 15:03] VITALS: BMI 29.8
[~2018-05-23 10:33] MED LIST: ONDANSETRON 4 MG/2 ML VIAL IVPUSH PRN; oxyCODONE HCL 5 MG TABLET PO PRN
[2018-05-23] MEDS ORDERED: MIDAZOLAM HCL 2 MG/2 ML SINGLE DOSE VIAL ONE (11:38)
[2018-05-23] MEDS ORDERED: KETOROLAC TROMETHAMINE 30 MG/1 ML VIAL ONE (12:22)
--- NOTE | 2018-05-23 13:06 | OP ---
Operative Note - Note: Operative Date: 05/23/18 Pre-Operative Diagnosis: Left renal stone Operation: Left ESWL Findings: 15 mm upper pole Left renal stone Post-Operative Diagnosis: Same as Pre-op Surgeon: Bladimir Pan Anesthesia: Fractional Estimated Blood Loss (mls): 0 Operative Report Dictated: Yes
[2018-05-23 13:27] VITALS: TEMP 98.7
[2018-05-23 14:43] VITALS: BP 145/74; PULSE 53
--- NOTE | 2018-06-29 09:17 | OP ---
DATE OF OPERATION: 05/23/2018 PREOPERATIVE DIAGNOSIS: Left renal stone. POSTOPERATIVE DIAGNOSIS: Left renal stone. PROCEDURE: Left extracorporeal shock wave lithotripsy. ATTENDING SURGEON: Nelda Pan MD ANESTHESIA: Fractional. OPERATION: As follows, the patient was brought into the operating room and placed in a supine position on the operating room table. Ultrasonography and fluoroscopy were performed. A 15-mm left upper pole stone was noted. Anesthesia and preoperative antibiotics were then administered. Shock wave lithotripsy was then performed utilizing fluoroscopy and ultrasonography. The stone was fragmentation. No complications were noted. The patient tolerated the procedure very well. NELDA FRANCES M.D. [id number]
== END 2018-05-23 14:00 | disposition home or self-care (01) ==
LOC: JASU-SURG 10:33
PROVIDERS: ATTEND Urology
PROC: 0TF4XZZ Fragmentation in Left Kidney Pelvis, External Approach (ICD-10-PCS; principal; 2018-05-23 11:45)
DX: N20.0 Calculus of kidney (principal)

== ENCOUNTER 2019-04-24 12:53 | Day surgery (SDC) | payer OTHER ==
[2019-04-24 08:45] VITALS: BMI 31.6
[2019-04-24] MEDS ORDERED: LIDOCAINE HCL/PF 2% SDV 5ML VIAL ONE (14:09)
[2019-04-24] MEDS ORDERED: MIDAZOLAM HCL 2 MG/2 ML SINGLE DOSE VIAL ONE (14:10)
[2019-04-24] MEDS ORDERED: PROPOFOL 20 ML ONE (14:10)
--- NOTE | 2019-04-24 14:32 | OP ---
Operative Note - Note: Operative Date: 04/24/19 Pre-Operative Diagnosis: Left renal stone Operation: Left ESWL Findings: 2 mm upper pole Left renal stone Post-Operative Diagnosis: Same as Pre-op Surgeon: Bladimir Pan Anesthesia: Local, Fractional Estimated Blood Loss (mls): 0 Drains, Volume Out (mls): 0 Operative Report Dictated: Yes
[2019-04-24] MEDS ORDERED: KETOROLAC TROMETHAMINE 30 MG/1 ML VIAL ONE (14:33)
[2019-04-24 15:49] VITALS: TEMP 98
[2019-04-24 16:14] VITALS: BP 116/74; PULSE 52
--- NOTE | 2019-04-24 19:48 | OP ---
DATE OF OPERATION: 04/24/2019 PREOPERATIVE DIAGNOSIS: Left renal stone. POSTOPERATIVE DIAGNOSIS: Left renal stone. PROCEDURE: Left extracorporeal shock wave lithotripsy. ATTENDING: Nelda Frances MD ANESTHESIA: Fractional. DESCRIPTION OF OPERATION: Patient was brought in the operating room, placed in supine position on the operating room table. Ultrasonography and fluoroscopy were performed. A 20-mm left upper pole stone was noted under ultrasonography and fluoroscopy. Anesthesia and preoperative antibiotics were then administered. Next, 2500 impulses at 20 joules of power were administered to the stone with moderate breakage of the stone under real-time ultrasonography and fluoroscopy. The patient does not have a stent. The patient has been warned that she may suffer from postoperative obstruction secondary to a stone fragment. The patient will increase her fluids and report to me any change in her pain management status. The disposition of the patient was to the recovery room. There were no complications noted. NELDA FRANCES M.D. [id number]
== END 2019-04-24 16:19 | disposition home or self-care (01) ==
LOC: JASU-SURG 12:53 → JOR 12:53 → JASU-SURG 16:19
PROVIDERS: ATTEND Urology
PROC: 0TF4XZZ Fragmentation in Left Kidney Pelvis, External Approach (ICD-10-PCS; principal; 2019-04-24 14:45)
DX: N20.0 Calculus of kidney (principal)

== ENCOUNTER 2020-06-03 04:22 | Day surgery (SDC) | payer OTHER ==
[2020-05-30 17:20] VITALS: BMI 30.7
[2020-06-03] MEDS ORDERED: MIDAZOLAM HCL 2 MG/2 ML SINGLE DOSE VIAL ONE ×2 (12:42)
[2020-06-03] MEDS ORDERED: DEXAMETHASONE SOD PHOSPHATE 4 MG/1 ML VIAL ONE (12:53)
[2020-06-03 14:56] VITALS: BP 128/78; PULSE 63; TEMP 98.1
== END 2020-06-03 14:35 | disposition home or self-care (01) ==
LOC: JASU-SURG 04:22
PROVIDERS: ATTEND Urology
PROC: 0TF3XZZ Fragmentation in Right Kidney Pelvis, External Approach (ICD-10-PCS; principal; 2020-06-03 12:00)
DX: N20.0 Calculus of kidney (principal)

== ENCOUNTER 2023-10-10 11:35 | Emergency (ER) | payer OTHER ==
[2023-10-10 11:41] VITALS: BP 161/82; PULSE 77; RESP 18; TEMP 98.7; BMI 32.3
[2023-10-10] MEDS: TETRACAINE 0.5% HCL 0.6ML DROPPER.BOTTLE OD ONE (12:33)
[2023-10-10] MEDS ORDERED: TETRACAINE 0.5% OPHTH SOLN 2 ML BOTTLE ONE (12:33)
== END 2023-10-10 12:46 | disposition home or self-care (01) ==
LOC: JERFT 11:35
DX: H57.11 Ocular pain, right eye (principal); L03.213 Periorbital cellulitis
CPT/HCPCS: 99283-25